=== PATIENT | female | born 1995 | race American Indian/Alaskan Native ===

== ENCOUNTER 2020-01-14 22:31 | Emergency (ER) | payer SELFPAY ==
[2020-01-14 23:04] VITALS: BP 133/87
== END 2020-01-14 23:50 | disposition left against medical advice (07) ==
LOC: ED 22:31
DX: R11.2 Nausea with vomiting, unspecified (principal); Z53.21 Procedure and treatment not carried out due to patient leaving prior to being seen by health care provider